=== PATIENT | female | born 1970 | race Caucasian/White ===

== ENCOUNTER 2017-02-08 06:16 | Day surgery (SDC) | payer MEDICAID ==
[~2017-02-08] VITALS: Ht 162.6 cm; Wt 76.3 kg
[2017-02-08] VITALS (15 sets, daily range): BP systolic 89–111; BP diastolic 45–55; PULSE 59–86; RESP 11–29; Ht 162.6 cm; Wt 76.3 kg
[~2017-02-08 06:16] MED LIST: ANTIBIOTIC; HYDR-3498 PO; IBUP400T22; TYL500 PO
[2017-02-08] MEDS ORDERED: VANCOMYCIN 1 GM in NS 250 ML IVPB ONE (07:30)
[2017-02-08] MEDS ORDERED: SOD CHLORIDE 0.9% 1,000 ML IV ONE (07:30)
[2017-02-08 07:36] LABS: ADD SCAN DIFF NO
[2017-02-08 07:42] LABS: BASOPHILS % 0.7 % (0.0-2.0); EOSINOPHILS # 0.1 10^3/ul (0.0-0.5); EOSINOPHILS % 1.3 % (0.0-7.0); HEMATOCRIT 35.8 % (37.0-47.0); HEMOGLOBIN 12.8 g/dl (12.0-16.0); LYMPHOCYTES # 1.4 10^3/ul (0.8-2.9); LYMPHOCYTES % 26.4 % (15.0-51.0); MEAN CORPUSCULAR HEMOGLOBIN 31.8 pg (29.0-33.0); MEAN CORPUSCULAR HGB CONC 35.8 g/dl (32.0-37.0); MEAN CORPUSCULAR VOLUME 88.8 fl (82.0-101.0); MEAN PLATELET VOLUME 8.7 fl (7.4-10.4); MONOCYTE # 0.4 10^3/ul (0.3-0.9); MONOCYTES % 6.5 % (0.0-11.0); NEUTROPHIL # 3.5 10^3/ul (1.6-7.5); NEUTROPHILS % 64.7 % (39.0-77.0); PLATELET COUNT 224 10^3/UL (140-415); RED BLOOD COUNT 4.03 10^6/ul (4.20-5.40); WHITE BLOOD COUNT 5.4 10^3/ul (4.8-10.8)
[2017-02-08] MEDS ORDERED: NOL20 PO (07:51)
[2017-02-08] MEDS ORDERED: LIDOCAINE 1% (MPF) 30 ML INJ ONE (07:56)
[2017-02-08] MEDS ORDERED: HEPARIN 1000 UNITS/ML 10 ML INJ ONE (07:56)
[2017-02-08] MEDS ORDERED: LIDOCAINE 2% (SDV) 5 ML INJ ONE (08:09)
[2017-02-08] MEDS ORDERED: PROPOFOL 20 ML ONE (08:09)
[2017-02-08] MEDS ORDERED: FENTAnyl 50 MCG/ML VIAL ONE (08:10)
[2017-02-08] MEDS ORDERED: MIDAZOLAM 1 MG/ML 2 ML INJ ONE (08:10)
[2017-02-08] MEDS ORDERED: METOCLOPRAMIDE 10 MG INJ ONE (08:21)
[2017-02-08] MEDS ORDERED: EPHEDrine SULFATE 50 MG/5 ML SYG ONE (08:21)
[2017-02-08] MEDS ORDERED: ONDANSETRON 4 MG INJ ONE (08:21)
[2017-02-08] MEDS ORDERED: KETOROLAC 30 MG INJ ONE (08:41)
[2017-02-08 08:45] LABS: INR 1.01; PROTIME 13.3 Sec (12.2-14.2)
[2017-02-08 08:46] LABS: PARTIAL THROMBOPLASTIN TIME 28.3 Sec (25.0-35.0)
[2017-02-08 08:50] LABS: ALBUMIN 4.5 g/dl (3.3-4.9); ALBUMIN/GLOBULIN RATIO 1.66; BILIRUBIN,INDIRECT 0.3 mg/dl (0-1.1); BILIRUBIN,TOTAL 0.3 mg/dl (0.2-1.3); TOTAL PROTEIN 7.2 g/dl (6.1-8.1)
[2017-02-08] MEDS ORDERED: MEPERIDINE 25 MG INJ IV PRN (09:00)
[2017-02-08] MEDS ORDERED: DIPHENHYDRAMINE 50 MG INJ IV PRN (09:00)
[2017-02-08] MEDS ORDERED: HYDROmorphONE (0.2 MG/ML) 10ML SYG IV PRN (09:00)
[2017-02-08] MEDS ORDERED: FENTAnyl 50 MCG/ML VIAL IV PRN (09:00)
[2017-02-08] MEDS ORDERED: PROCHLORPERAZINE 10 MG INJ IV PRN (09:00)
[2017-02-08] MEDS ORDERED: OXYCODONE/ACETAMINOPHEN (5/325) TAB PO PRN ×2 (09:00)
[2017-02-08] MEDS ORDERED: ONDANSETRON 4 MG INJ IV PRN (09:00)
[2017-02-08] MEDS ORDERED: TRIMETHOBENZAMIDE 100 MG/ML VIAL IM PRN (09:00)
[2017-02-08 09:02] LABS: CREATININE 0.62 mg/dl (0.44-1.00); POTASSIUM 3.7 mmol/L (3.5-5.1)
[2017-02-08 09:03] LABS: CALCIUM 8.8 mg/dl (8.4-10.2)
--- NOTE | 2017-02-08 09:41 | OPR ---
DATE OF OPERATION: 02/08/2017 PREOPERATIVE DIAGNOSIS: History of right breast cancer, need for chemo port removal from the left s ubclavian position. POSTOPERATIVE DIAGNOSIS: History of right breast cancer, need for chemo port removal from the left subclavian position. PROCEDURE PERFORMED: Removal of chemo port left subclavian location. SURGEON: Cesar Steiner MD ENGRAVER SIGNATURE: Dedra Bello MD ANESTHESIA: General. ANESTHESIOLOGIST: Nataliia Plascencia MD INDICATIONS FOR PROCEDURE: The patient is known to me. I had previously treated her for invasive c ancer of her right breast. She has successfully completed her treatment and is requesting removal o f her chemo port. She consented and was scheduled for surgery. DESCRIPTION OF PROCEDURE: The patient was brought to the operating theater, placed under general an esthesia. The left anterior thorax was prepped and draped in the usual sterile fashion. The previo us surgical incisional scar overlying the port was reincised with a 15 blade scalpel. Subcutaneous tissue was dissected with a combination of cautery and sharp dissection. The pseudocapsule surround ing the port was incised. The port was just gently elevated and then withdrawn as pressure was held in an infraclavicular location. The port appeared grossly intact and was sent for pathologic torri sis to confirm that it was intact. Minimal bleeding was controlled with cautery. The area was infi ltrated with 1% lidocaine local anesthetic with epinephrine. The skin was then reapproximated with a 4-0 Vicryl suture in subcuticular fashion, and benzoin and Steri-Strips were applied. The patient tolerated the procedure well. The estimated blood loss was 5 mL. There were no complications and the patient was transported in stable condition to the recovery room. Dictated By: CESAR STEINER MD TL/EVGENY Conf#: [id number] DID#: [id number]
== END 2017-02-08 12:17 | disposition home or self-care (01) ==
LOC: SDS 06:16
PROVIDERS: ATTEND Surgery Surgical Oncology
DX: Z45.2 Encounter for adjustment and management of vascular access device (principal); Z85.3 Personal history of malignant neoplasm of breast
CPT/HCPCS: 36590; 80053; 85025; 85610; 85730; 88300; J1885; J2250; J2405; J2765; J3010; J3370; Z7512; Z7610; J1644